=== PATIENT | female | born 1980 | race Two or more races ===

== ENCOUNTER 2018-10-07 23:44 | Emergency (ER) | payer BC, OTHER ==
[2018-10-08 00:17] VITALS: TEMP 97.4; BMI 27.4
[2018-10-08] MEDS ORDERED: DEXAMETHASONE SOD PHOSPHATE 10 MG/1 ML VIAL IM ONE (01:48)
[2018-10-08] MEDS ORDERED: DEXAMETHASONE SOD PHOSPHATE 10 MG/1 ML VIAL ONE (02:01)
[2018-10-08 03:05] LABS: BASO % 1.4 % (0-2.0); EOS % 11.4 % (0-4.5); HEMATOCRIT 37.9 % (32.4-45.2); HEMOGLOBIN 12.6 GM/dL (10.7-15.3); LYMPH % 26.3 % (8-40); MCH 29.9 pg (25.7-33.7); MCHC 33.3 g/dl (32.0-36.0); MEAN CELL VOLUME 89.9 fl (80-96); MEAN PLT VOLUME 7.8 fl (7.5-11.1); NEUT % 52.9 % (42.8-82.8); PLATELET COUNT 290 K/MM3 (134-434); RBC 4.22 M/mm3 (3.60-5.2); RDW 15.1 % (11.6-15.6); WHITE BLOOD COUNT 7.5 K/mm3 (4.0-10.0)
[2018-10-08 03:30] LABS: INR 1.03 (0.83-1.09); PROTHROMBIN TIME (PATIENT) 12.1 SEC (9.7-13.0)
[2018-10-08 04:11] LABS: ALBUMIN 3.8 g/dl (3.4-5.0); BILIRUBIN,TOTAL 0.3 mg/dL (0.2-1); BLOOD UREA NITROGEN 16.3 mg/dL (7-18); CALCIUM 9.9 mg/dL (8.5-10.1); CREATININE 0.7 mg/dL (0.55-1.3); POTASSIUM 3.6 mmol/L (3.5-5.1); TOT PROT 7.5 g/dl (6.4-8.2)
--- NOTE | 2018-10-08 05:07 | PDOC ---
Documentation entered by Sarah Contreras SCRIBE, acting as scribe for Kelly Neal MD. Kelly Neal MD: This documentation has been prepared by the Ben arriaga Adrianna, SCRIBE, under my direction and personally reviewed by me in its entirety. I confirm that the documentation accurately reflects all work, treatment, procedures, and medical decision making performed by me. History of Present Illness - General Chief Complaint: Rash Stated Complaint: RASH Time Seen by Provider: 10/08/18 01:28 - History of Present Illness Initial Comments: The patient is a 37 year old female, with no significant PMH< who presents to the ED for evaluation of diffuse rash for 3 weeks. Patient notes she was gardening and cutting the grass 3 weeks ago, when she developed a rash on her bilateral upper extremities, which she believes is both poison kerwin and poison oak. Patient nots that the rash progressively spread to her bilateral hands, bilateral lower extremities, abdomen, and breasts. She notes the rash has become progressively more itchy and has not responded to a variety of medications (including prednisone, steroid topicals, benadryl). She notes some bruising at the bilateral thighs, but is unsure if it is related to the rash. Denies any tramuma or injury to the area. Patient notes her daughter was exposed to the same situation, but her rash is not as diffuse or severe, Denies fever, chills, nausea, vomit, diarrhea, urinary symptoms, chest pain, SOB. Allergies: NKA, NKDA Surgical History: None reported Social History: Denies EOH, tobacco, or illicit drug use Past History - Past Medical History Allergies/Adverse Reactions: Allergies Allergy/AdvReac Type Severity Reaction Status Date / Time No Known Allergies Allergy Verified 10/08/18 00:15 Home Medications: Ambulatory Orders Mometasone Furoate [Elocon] 1 applic TP DAILY #45 cream..g. 10/08/18 - Suicide/Smoking/Psychosocial Hx Smoking History: Never smoked Have you smoked in the past 12 months: No Information on smoking cessation initiated: No Hx Alcohol Use: No Drug/Substance Use Hx: No Review of Systems - Review of Systems Comments:: GENERAL/CONSTITUTIONAL: No fever or chills. No weakness. HEAD, EYES, EARS, NOSE AND THROAT: No change in vision. No ear pain or discharge. No sore throat. GASTROINTESTINAL: No nausea, vomiting, diarrhea or constipation. GENITOURINARY: No dysuria, frequency, or change in urination. CARDIOVASCULAR: No chest pain or shortness of breath. RESPIRATORY: No cough, wheezing, or hemoptysis. MUSCULOSKELETAL: No joint or muscle swelling or pain. No neck or back pain. SKIN: +Diffuse rash covering the bilateral upper extremities and hands, bilateral lower extremities, abdomen, and breasts. +Progressively worsening itching of the rash sites. +Bilateral bruising of the thigh. NEUROLOGIC: No headache, vertigo, loss of consciousness, or change in strength/ sensation. ENDOCRINE: No increased thirst. No abnormal weight change. HEMATOLOGIC/LYMPHATIC: No anemia, easy bleeding, or history of blood clots. ALLERGIC/IMMUNOLOGIC: +Diffuse rash covering the bilateral upper extremities and hands, bilateral lower extremities, abdomen, and breasts. +Progressively worsening itching of the rash sites. *Physical Exam - Vital Signs Last Vital Signs Temp Pulse Resp BP Pulse Ox 97.4 F L 71 18 132/62 99 10/08/18 00:15 10/08/18 00:15 10/08/18 00:15 10/08/18 00:15 10/08/18 00:15 - Physical Exam Comments: GENERAL: Afebrile. Awake, alert, and fully oriented, in no acute distress HEAD: No signs of trauma EYES: PERRLA, EOMI, sclera anicteric, conjunctiva clear ENT: Auricles normal inspection, hearing grossly normal, nares patent, oropharynx clear without exudates. Moist mucosa NECK: Normal ROM, supple, no lymphadenopathy, JVD, or masses LUNGS: Breath sounds equal, clear to auscultation bilaterally. No wheezes, and no crackles HEART: Regular rate and rhythm, normal S1 and S2, no murmurs, rubs or gallops ABDOMEN: Soft, nontender, normoactive bowel sounds. No guarding, no rebound. No masses EXTREMITIES: Normal range of motion, no edema. No clubbing or cyanosis. No cords , erythema, or tenderness BACK: No midline spinal tenderness in cervical/thoracic/lumbar region NEUROLOGICAL: Normal speech, cranial nerves intact, negative pronator drift, 5/ 5 strength in all 4 extremities, normal sensation to light touch in all 4 extremities, normal cerebellar exam, normal gait, normal reflexes and tone SKIN: +Linear scars and poison kerwin-like rash on the bilateral upper extremities. +Discrete papular lesions that are excoriated. +Confluent area of hives on the right lower abdomen. +Confluent area of hives on the bilateral breasts. +Bilateral thigh hematomas. Warm, Dry, normal turgor. ED Treatment Course - LABORATORY CBC & Chemistry Diagram: 10/08/18 02:49 10/08/18 02:49 - ADDITIONAL ORDERS Additional order review: Laboratory Results 10/08/18 02:49 PTT (Actin FS) 40.3 H 10/08/18 02:49 RBC 4.22 MCV 89.9 MCHC 33.3 RDW 15.1 MPV 7.8 Neutrophils % 52.9 Lymphocytes % 26.3 Monocytes % 8.0 Eosinophils % 11.4 H Basophils % 1.4 - Medications Given in the ED: ED Medications Discontinued Medications Generic Name Dose Route Start Last Admin Trade Name Freq PRN Reason Stop Dose Admin Dexamethasone Sodium Phosphate 10 mg 10/08/18 01:48 10/08/18 03:02 Decadron Injection - IM 10/08/18 01:49 10 mg ONCE ONE Administration Medical Decision Making - Medical Decision Making 10/08/18 04:02 Pt has normal WBC count; however eosinophils are elevated. *DC/Admit/Observation/Transfer Diagnosis at time of Disposition: Contact dermatitis - Discharge Dispostion Disposition: HOME Condition at time of disposition: Stable Decision to Admit order: No - Prescriptions Prescriptions: Mometasone Furoate [Elocon] 1 applic TP DAILY #45 cream..g. - Referrals - Patient Instructions Printed Discharge Instructions: DI for Contact Dermatitis - Post Discharge Activity
[2018-10-08 05:23] VITALS: BP 138/68; PULSE 76
== END 2018-10-08 05:22 | disposition home or self-care (01) ==
LOC: JER 23:44
DX: L23.7 Allergic contact dermatitis due to plants, except food (principal)
CPT/HCPCS: 36415; 80053; 85025; 85610; 85730; 86850; 86900; 86901; 99282-25; J1100